=== PATIENT | female | born 1995 | race Caucasian/White ===

== ENCOUNTER 2019-10-13 16:26 | Emergency (ER) | payer SELFPAY ==
[~2019-10-13] VITALS: Ht 162.6 cm; Wt 97.5 kg
[2019-10-13 16:35] VITALS: Ht 162.6 cm; Wt 97.5 kg
[2019-10-13 17:50] VITALS: BP 104/72
== END 2019-10-13 17:50 | disposition home or self-care (01) ==
LOC: ED 16:26
DX: I83.92 Asymptomatic varicose veins of left lower extremity (principal)
CPT/HCPCS: 90715

== ENCOUNTER 2019-10-20 14:06 | Emergency (ER) | payer SELFPAY ==
[~2019-10-20] VITALS: Ht 162.6 cm; Wt 113.4 kg
[2019-10-20 14:13] VITALS: BP 115/80; Ht 162.6 cm; Wt 113.4 kg
== END 2019-10-20 18:12 | disposition home or self-care (01) ==
LOC: ED 14:06
DX: I83.891 Varicose veins of right lower extremity with other complications (principal); I83.013 Varicose veins of right lower extremity with ulcer of ankle
CPT/HCPCS: J2001